=== PATIENT | male | born 1990 | race Two or more races ===

== ENCOUNTER 2016-08-08 18:14 | Emergency (ER) | payer OTHER ==
[~2016-08-08] VITALS: Ht 162.6 cm; Wt 70.8 kg
[2016-08-08 18:34] VITALS: BP 128/73
[2016-08-08] MEDS ORDERED: Surgicel 4in x 8in TOPIC ONE (18:45)
[2016-08-08] MEDS ORDERED: TdaP Vaccine 0.5ml Syr IM ONE (18:45)
[2016-08-08] MEDS ORDERED: CEPHALEXIN500 MG ORAL (19:21)
[2016-08-08] MEDS ORDERED: IBUPROFEN600 MG ORAL (19:21)
[2016-08-08 19:40] VITALS: BP 141/91
--- NOTE | 2016-08-08 22:38 | Emergency Room Report ---
History of Present Illness General Chief Complaint: Laceration Source: Patient Present Illness Allergies: Coded Allergies: No Known Allergies (Unverified , 08/08/16) Nursing Documentation-PMH Past Medical History: No Stated History Physical Exam Vital Signs Date Time Temp Pulse Resp B/P Pulse Ox O2 Delivery O2 Flow Rate FiO2 08/08/16 18:21 98.2 70 16 128/73 98 Room Air Medical Decision Making PA Attestation Dr. Momin is my supervising physician. Patient management was discussed with my supervising physician Diagnostic Impression: Primary Impression: Avulsion of skin of finger Qualified Codes: S61.209A - Unspecified open wound of unspecified finger without damage to nail, initial encounter ER Course Ddx considered include but not limited to fracture, tendon/ligament injury, avulsion, nerve damage Last Vital Signs Date Time Temp Pulse Resp B/P Pulse Ox O2 Delivery O2 Flow Rate FiO2 08/08/16 19:40 76 14 141/91 97 Room Air 08/08/16 18:34 98.2 Disposition: HOME, SELF-CARE Condition: Improved Scripts Cephalexin* (KEFLEX*) 500 Mg Capsule 500 MG ORAL EVERY 12 HOURS, #14 CAP 0 Refills Prov: AL MARQUEZ P.A. 08/08/16 Ibuprofen* (MOTRIN*) 600 Mg Tablet 600 MG ORAL Q8H Y for For Pain, #30 TAB 0 Refills Prov: AL MARQUEZ P.A. 08/08/16 Patient Instructions: Nonsutured Laceration Care Additional Instructions: I discussed my findings with the patient. All questions and concerns have been answered. Treatment and medication compliance have been addressed. I advised the patient that they need to follow up with PMD in 3-5 days. Return to ED if symptoms worsen, new symptoms arise, or if needed for any reason. Patient verbalized understanding of discharge instructions. The patient will follow up with workers compensation AL MARQUEZ August 08, 2016 22:38
== END 2016-08-08 19:40 | disposition home or self-care (01) ==
LOC: EMR 19:00
DX: S61.209A Unspecified open wound of unspecified finger without damage to nail, initial encounter (principal); Z23 Encounter for immunization; X58.XXXA Exposure to other specified factors, initial encounter; Y93.9 Activity, unspecified; Y92.9 Unspecified place or not applicable
CPT/HCPCS: 90471; 90715; 96372; 99284